=== PATIENT | male | born 1965 | race Two or more races ===

== ENCOUNTER 2016-10-30 07:34 | Day surgery (SDC) | payer OTHER ==
[~2016-10-30 07:34] MED LIST: FENTANYL 250 MCG/5 ML AMP IV PRN; LACTATED RINGERS 1,000 ML IV SCH; MIDAZOLAM HCL 5 MG/5 ML VIAL IV PRN
[2016-10-30] MEDS ORDERED: LIDOCAINE Viscous 2% 15 ML UDCUP PO PRN (08:49)
[2016-10-30] MEDS ORDERED: FENTANYL 250 MCG/5 ML AMP ONE (08:56)
[2016-10-30] MEDS ORDERED: MIDAZOLAM HCL 5 MG/5 ML VIAL ONE (08:56)
[2016-10-30 13:53] LABS: HELICOBACTER PYLORII DETECTION POSITIVE (NEGATIVE)
--- NOTE | 2016-11-05 14:21 | SURGPATH ---
[facility] [address] [place] [id number] Patient Name: TAYLER AVENDANO MR#: [id number] : 1965 Gender: M Specimen #: [id number] Collected: 10/30/2016 Received: 11/02/2016 Reported: 11/03/2016 Submitting Phys: LINCOLN DOLAN Copy To Phys: [facility] LIVIER GARDUNO Clinical History / Pre-Operative Diagnosis: NONE PROVIDED Specimen Source / Surgical Procedure Performed: #1-DUODENAL BIOPSY; #2-ANTRAL BIOPSY Interpretation: 1. DUODENUM, BIOPSY: - NO DIAGNOSTIC ABNORMALITIES 2. STOMACH, ANTRUM, BIOPSY: - MODERATE CHRONIC NON-ATROPHIC ANTRAL GASTRITIS WITH ACTIVITY - NUMEROUS HELICOBACTER ORGANISMS SEEN ON ROUTINE STAIN Electronically Signed Out Rachel Leiva M.D. Gross Description: #1 The specimen is received in a formalin filled container labeled with the patient's name and "duodenal biopsy". A single espinal biopsy is 0.3 cm. Totally embedded in cassette #1. #2 The specimen is received in a formalin filled container labeled with the patient's name and "antral biopsy". Two goldberg-espinal biopsies are 0.4 and 0.5 cm. Totally embedded in cassette #2. Eric Alford Microscopic Description: Part 1: Sections show duodenal mucosa with overall intact architecture with a villous to crypt ratio of three to one. No increased intraepithelial lymphocytes, gastric metaplasia, active duodenitis, or evidence of Giardia are seen on routine stain. No malignancy is seen. Part 2: Antral mucosa shows moderate chronic inflammation the lamina propria, which is expanded by plasma cells and small lymphocytes along with active inflammation. Numerous Helicobacter organisms are seen on routine stain within the mucosal folds. No lymphoepithelial lesions or atypical lymphocytes are seen. 1: [id number] 2: 86084 K29.40 B96.81
== END 2016-10-30 10:15 | disposition home or self-care (01) ==
LOC: SDC 07:34
PROVIDERS: ATTEND Internal Medicine Gastroenterology
PROC: 0DB68ZX Excision of Stomach, Via Natural or Artificial Opening Endoscopic, Diagnostic (ICD-10-PCS; principal; 2016-10-30)
PROC: 0DB98ZX Excision of Duodenum, Via Natural or Artificial Opening Endoscopic, Diagnostic (ICD-10-PCS; 2016-10-30)
DX: K29.50 Unspecified chronic gastritis without bleeding (principal); K29.80 Duodenitis without bleeding; A04.8 Other specified bacterial intestinal infections